=== PATIENT | male | born 1965 | race Asian ===

== ENCOUNTER 2017-02-02 02:18 | Inpatient (IN) | payer OTHER ==
[~2017-02-02] VITALS: Ht 172.7 cm; Wt 73.0 kg
[2017-02-02 02:53] LABS: BLOOD UREA NITROGEN 11 mg/dL (7-18)
[2017-02-02] MEDS ORDERED: ONDANSETRON 2MG/ML, 2ML IVPush PRN (03:00)
[2017-02-02 04:27] VITALS: BP 144/88
[2017-02-02] MEDS ORDERED: SODIUM CHLORIDE 0.9% 1,000 ML IV SCH (05:17)
[2017-02-02] MEDS ORDERED: TRAZODONE 50MG TABLET PO PRN (05:30)
[2017-02-02] MEDS ORDERED: DOCUSATE 100 MG CAPSULE PO PRN (05:30)
[2017-02-02] MEDS ORDERED: hydrALAzine 20 MG/ML, 1ML IVPush PRN (05:30)
[2017-02-02] MEDS ORDERED: ACETAMINOPHEN 325 MG TABLET PO PRN (05:30)
[2017-02-02] MEDS ORDERED: BISACODYL 10 MG SUPP PR PRN (05:30)
[2017-02-02] MEDS ORDERED: POLYETHYLENE GLYCOL 17 GM PACKET PO PRN (05:30)
[2017-02-02] MEDS ORDERED: PANTOPRAZOLE 40 MG IV IVPush SCH (07:30)
[2017-02-02 07:53] VITALS: BP 108/69
[2017-02-02] MEDS ORDERED: OMNIPAQUE 350 MG/ML, 100ML BOTTLE ONE (09:32)
[2017-02-02] MEDS ORDERED: MOVIPREP POWDER 1 PREP KIT PO SCH (10:00)
[2017-02-02] MEDS ORDERED: IRON SUCROSE COMPLEX 100MG/5ML IV SCH (11:00)
[2017-02-02] MEDS ORDERED: IRON DEXTRAN IV PER PHARMACY IV ONE (12:00)
[2017-02-02] MEDS ORDERED: MOVIPREP POWDER 1 PREP KIT PO ONE ×2 (12:00→15:00)
[2017-02-02] MEDS ORDERED: IRON DEXTRAN COMPLEX 25 MG in SODIUM CHLORIDE 0.9% 50 ML IV ONE (12:00)
[2017-02-02 13:10] VITALS: BP 119/81
[2017-02-02] MEDS ORDERED: IRON DEXTRAN COMPLEX 1,650 MG in SODIUM CHLORIDE 0.9% 250 ML IV ONE (13:30)
[2017-02-02] MEDS ORDERED: ACET325T14 PO (14:27)
[2017-02-02] MEDS ORDERED: DOCU-30 PO (14:27)
[2017-02-02] MEDS ORDERED: BISA10SU65 PR (14:27)
[2017-02-02] MEDS ORDERED: PANT40VI IVPush (14:27)
[2017-02-03] MEDS ORDERED: MOVIPREP POWDER 1 PREP KIT PO ONE (06:00)
== END 2017-02-02 19:06 | disposition short-term general hospital (02) | DRG 378 ==
LOC: ED 02:54 → EDIP 02:55 → ED 03:14 → 4NOR 04:00
PROVIDERS: ADMIT Internal Medicine; ATTEND Internal Medicine
DX: K92.1 Melena (principal); D62 Acute posthemorrhagic anemia; K64.9 Unspecified hemorrhoids; Z82.49 Family history of ischemic heart disease and other diseases of the circulatory system; Z83.3 Family history of diabetes mellitus
CPT/HCPCS: 36415; 74174; 80048; 82607; 82728; 82746; 83540; 83550; 85018; 85025; 86850; 86900; 99285; J1750; Q9967; C9113; J7030; J7050